=== PATIENT | male | born 1965 | race African-American/Black ===

== ENCOUNTER 2019-01-05 12:31 | Emergency (ER) | payer OTHER ==
[2019-01-05] MEDS ORDERED: NS 0.9% 1000 ML** 1,000 ML IV ONE (12:47)
[2019-01-05] MEDS ORDERED: Ondansetron INJ* 2 MG/ML VIAL IV ONE (12:48)
[2019-01-05 14:34] LABS: ABS Basophils 0 10^3/ul (0-0.2); ABS Eosinophils 0 10^3/ul (0-0.6); ABS Lymphocytes 0.4 10^3/ul (1.0-4.8); ABS Monocytes 0.3 10^3/ul (0-0.8); ABS Nucleated RBC 0 10^3/ul; Eosinophil % 0.3 %; Hematocrit 42 % (36-46); Hemoglobin 13.9 g/dL (14.0-18.0); Lymphocyte % 5.7 %; Mean Corpuscular HGB Conc 33 g/dL (31-36); Mean Corpuscular Hemoglobin 29 pg (27-31); Mean Corpuscular Volume 88 fL (80-94); Mean Platelet Volume 7.6 fL (7.4-10.4); Nucleated Red Blood Cells % 0.2; Platelet Count 252 10^3/uL (150-450); Red Blood Count 4.79 10^6 /uL (4.18-5.48); Red Cell Distribution Width 14 % (10.5-15); White Blood Count 7.8 10^3/uL (3.5-10.8)
[2019-01-05] MEDS ORDERED: Dicyclomine CAP* 10 MG PO ONE (14:49)
[2019-01-05 14:55] LABS: Albumin 4.5 g/dL (3.2-5.2); Albumin/Globulin Ratio 1.5 (1-3); BUN/Creatinine Ratio 15.3 (8-20); C Reactive Protein 8.84 mg/L (<8.01); Calcium 9.4 mg/dL (8.6-10.3); EGFR African American 84.5 (>60); EGFR Non-African American 69.8 (>60); Globulin 3.1 g/dL (2-4); Potassium 4.2 mmol/L (3.5-5.0); Total Bilirubin 0.5 mg/dL (0.2-1.0); Total Protein 7.6 g/dL (6.4-8.9)
--- NOTE | 2019-01-05 15:01 | ED ---
Abdominal Pain/Male - HPI Summary HPI Summary: Patient is a 53-year-old male with a history of GERD and hypertension presenting to the ED with abdominal cramping, nausea, vomiting since last evening after eating ground beef. He states he has had food poisoning the past and this feels similar. He does endorse sweats and chills, but denies any subjective fevers. He denies any known sick contacts. - History of Current Complaint Chief Complaint: EDAbdPain Stated Complaint: VOMITING FOOD POSION PER PT Time Seen by Provider: 01/05/19 14:27 Hx Obtained From: Patient Onset/Duration: Sudden Onset Timing: Constant Severity Initially: Moderate Severity Currently: Moderate Pain Intensity: 8 Pain Scale Used: 0-10 Numeric Radiates: No Character: Cramping Aggravating Factor(s): Nothing Alleviating Factor(s): Nothing Associated Signs And Symptoms: Positive: Vomiting, Diarrhea - Risk Factors Testicular Torsion: Negative - Allergies/Home Medications Allergies/Adverse Reactions: Allergies Allergy/AdvReac Type Severity Reaction Status Date / Time No Known Allergies Allergy Verified 12/08/18 10:53 Home Medications: Home Medications Ranitidine TAB (NF) [Zantac TAB (NF)] 150 mg PO BEDTIME 01/05/19 [History Confirmed 01/05/19] PMH/Surg Hx/FS Hx/Imm Hx Previously Healthy: Yes - Immunization History Hx Pertussis Vaccination: No Immunizations Up to Date: Yes Infectious Disease History: No Infectious Disease History: Denies: Traveled Outside the [place] in Last 30 Days - Social History Occupation: Employed Full-time Lives: With Family Alcohol Use: None Hx Substance Use: No Substance Use Type: Reports: None Smoking Status (MU): Never Smoked Tobacco Review of Systems Constitutional: Negative Negative: Fever, Chills, Fatigue, Skin Diaphoresis Negative: Palpitations, Chest Pain Negative: Shortness Of Breath, Cough Positive: Abdominal Pain, Vomiting, Diarrhea, Nausea Genitourinary: Negative Positive: no symptoms reported, see HPI Negative: Arthralgia, Myalgia Skin: Negative Neurological: Negative All Other Systems Reviewed And Are Negative: Yes Physical Exam Triage Information Reviewed: Yes Vital Signs On Initial Exam: Initial Vitals Temp Pulse Resp BP Pulse Ox 98.8 F 88 16 141/97 97 01/05/19 12:41 01/05/19 12:41 01/05/19 12:41 01/05/19 12:41 01/05/19 12:41 Vital Signs Reviewed: Yes Appearance: Positive: Well-Appearing, Well-Nourished Skin: Positive: Warm, Skin Color Reflects Adequate Perfusion Head/Face: Positive: Normal Head/Face Inspection Eyes: Positive: EOMI, Conjunctiva Clear Neck: Positive: Supple, No Lymphadenopathy Respiratory/Lung Sounds: Positive: Clear to Auscultation, Breath Sounds Present Cardiovascular: Positive: RRR, Pulses are Symmetrical in both Upper and Lower Extremities Musculoskeletal: Positive: Strength/ROM Intact Neurological: Positive: Speech Normal Psychiatric: Positive: Normal, Affect/Mood Appropriate Diagnostics - Vital Signs Vital Signs Temp Pulse Resp BP Pulse Ox 01/05/19 14:57 85 164/93 94 01/05/19 14:56 90 95 01/05/19 12:41 98.8 F 88 16 141/97 97 - Laboratory Lab Results: Lab Results 01/05/19 01/05/19 01/05/19 Range/Units 14:22 14:22 14:22 WBC 7.8 (3.5-10.8) 10^3/uL RBC 4.79 (4.18-5.48) 10^6 /uL Hgb 13.9 L (14.0-18.0) g/dL Hct 42 (36-46) % MCV 88 (80-94) fL MCH 29 (27-31) pg MCHC 33 (31-36) g/dL RDW 14 (10.5-15) % Plt Count 252 (150-450) 10^3/uL MPV 7.6 (7.4-10.4) fL Neut % (Auto) 89.9 % Lymph % (Auto) 5.7 % [place] % (Auto) 3.9 % Eos % (Auto) 0.3 % Baso % (Auto) 0.2 % Absolute Neuts (auto) 7.0 (1.5-7.7) 10^3/ul Absolute Lymphs (auto) 0.4 L (1.0-4.8) 10^3/ul Absolute Monos (auto) 0.3 (0-0.8) 10^3/ul Absolute Eos (auto) 0 (0-0.6) 10^3/ul Absolute Basos (auto) 0 (0-0.2) 10^3/ul Absolute Nucleated RBC 0 10^3/ul Nucleated RBC % 0.2 Sodium 137 (135-145) mmol/L Potassium 4.2 (3.5-5.0) mmol/L Chloride 105 (101-111) mmol/L Carbon Dioxide 28 (22-32) mmol/L Anion Gap 4 (2-11) mmol/L BUN 17 (6-24) mg/dL Creatinine 1.11 (0.67-1.17) mg/dL Est GFR ( Amer) 84.5 (>60) Est GFR (Non-Af Amer) 69.8 (>60) BUN/Creatinine Ratio 15.3 (8-20) Glucose 118 H (70-100) mg/dL Lactic Acid 0.8 (0.5-2.0) mmol/L Calcium 9.4 (8.6-10.3) mg/dL Total Bilirubin 0.50 (0.2-1.0) mg/dL AST 27 (13-39) U/L ALT 30 (7-52) U/L Alkaline Phosphatase 47 (34-104) U/L C-Reactive Protein 8.84 H (<8.01) mg/L Total Protein 7.6 (6.4-8.9) g/dL Albumin 4.5 (3.2-5.2) g/dL Globulin 3.1 (2-4) g/dL Albumin/Globulin Ratio 1.5 (1-3) Lipase 29 (11.0-82.0) U/L Result Diagrams: 01/05/19 14:22 01/05/19 14:22 Lab Statement: Any lab studies that have been ordered have been reviewed, and results considered in the medical decision making process. Abdominal Pain Male Course/Dx - Course Course Of Treatment: Patient is evaluated for possible food poisoning versus other etiology. He is endorsing abdominal cramping as well as nausea vomiting diarrhea. He states symptoms began this morning and went to the afternoon. He denies any nausea, vomiting, diarrhea currently, however states he still feels abdominal cramping throughout. Labs obtained and 1 L normal saline given. He is also given Zofran and dycyclomine. Influenza negative. Symptoms improved with medications and rx sent. Discussed we will not be adding abx at this time , however if diarrhea continues, he will f/u with pcp. - Diagnoses Provider Diagnoses: Gastroenteritis Discharge - Sign-Out/Discharge Documenting (check all that apply): Patient Departure Patient Received Moderate/Deep Sedation with Procedure: No - Discharge Plan Condition: Stable Disposition: HOME Prescriptions: Dicyclomine CAP* [Bentyl CAP*] 10 mg PO TID PRN #12 cap PRN Reason: Pain Ondansetron ODT TAB* [Zofran 4 MG Odt TAB*] 4 mg PO Q6H PRN #12 tab.odt MDD 4 PRN Reason: Nausea Patient Education Materials: Food Poisoning (ED) Referrals: Jennifer Simmons MD [Primary Care Provider] - Additional Instructions: Take the dicyclomine up to three times daily for abdominal spasms and pain Take zofran up to four times daily for nausea drink plenty of fluids, including Gatorade Please follow up with PCP as needed Chicken noodle soup, rice, toast, bananas, applesauce and other gentle foods at this time - Billing Disposition and Condition Condition: STABLE Disposition: Home
[2019-01-05 18:01] VITALS: BP 156/86
== END 2019-01-05 18:01 | disposition home or self-care (01) ==
LOC: ED 12:31
DX: K52.9 Noninfective gastroenteritis and colitis, unspecified (principal)
CPT/HCPCS: 36415; 80053; 83605; 83690; 85025; 86140; 96361; 96374; 99283; A9270-GY; J2405

== ENCOUNTER 2019-02-01 09:31 | Emergency (ER) | payer OTHER ==
--- NOTE | 2019-02-01 10:32 | ED ---
Headache - HPI Summary HPI Summary: Pt is a 53 y/o male who presents to the ED c/o headache. 2 weeks ago he began to have left lower dental pain and adjacent gingivitis. Since then pt has had a constant headache that has been worsening. Headache is described as a migraine and is currently rated an 8/10 in severity. Pt also reports sensitivities to hot /cold liquids and foods, but denies any fever. He has made a dental appointment and was instructed to come to the ED in case of an infection. Pt has been taking Tylenol for his pain which has helped somewhat. PMHx GERD. He denies any smoking. - History Of Current Complaint Chief Complaint: EDHeadache Stated Complaint: SENSITIVE TEETH/PAINFUL/MIGRAINE PER PT Time Seen by Provider: 02/01/19 10:18 Hx Obtained From: Patient Onset/Duration: Gradual Onset, Started weeks ago - 2, Worse Since Currently Pain Is: Severe - 8/10 Timing: Constant Character: Migraine Location of Headache: Diffuse Aggravating Factor: Other - hot/cold foods Associated Signs And Symptoms: Other (Noted In Comments) - dental pain - Allergies/Home Medications Allergies/Adverse Reactions: Allergies Allergy/AdvReac Type Severity Reaction Status Date / Time No Known Allergies Allergy Verified 02/01/19 09:38 PMH/Surg Hx/FS Hx/Imm Hx Endocrine/Hematology History: Denies: Hx Diabetes Cardiovascular History: Reports: Hx Hypercholesterolemia, Hx Hypertension GI History: Reports: Hx Gastroesophageal Reflux Disease, Other GI Disorders - polyps Infectious Disease History: No Infectious Disease History: Denies: Traveled Outside the [place] in Last 30 Days - Family History Known Family History: Positive: Other - migraine - sister - Social History Alcohol Use: None Hx Substance Use: No Substance Use Type: Reports: None Hx Tobacco Use: No Smoking Status (MU): Never Smoked Tobacco Review of Systems Negative: Fever Positive: Dental Pain - left lower Positive: Headache All Other Systems Reviewed And Are Negative: Yes Physical Exam - Summary Physical Exam Summary: Appearance: well appearing, no pain distress Skin: warm, dry, reflects adequate perfusion Head/face: normal Eyes: EOMI, PRAKASH ENT: mucous membranes moist, gingival edema and tenderness adjacent to first and second left lower molars, no pain at the parotid gland Neck: supple, non-tender Respiratory: CTA, breath sounds present Cardiovascular: RRR, pulses symmetrical Abdomen: non-tender, soft Bowel Sounds: present Musculoskeletal: normal, strength/ROM intact Neuro: normal, sensory motor intact, A&Ox3 Triage Information Reviewed: Yes Vital Signs On Initial Exam: Initial Vitals Temp Pulse Resp BP Pulse Ox 97.6 F 64 18 150/90 97 02/01/19 09:35 02/01/19 09:35 02/01/19 09:35 02/01/19 09:35 02/01/19 09:35 Vital Signs Reviewed: Yes Procedures - Procedure Summary Procedure Summary: cervical block and dental block for pain: The posterior neck was prepared at level of C5 with alcohol. He is injected 1.5 cm off midline bilaterally with a total of 1.5 cc of bupivacaine 0.5% with epinephrine on each side. He is then given a dental block via infraoral approach to the inferior alveolar nerve on the left side. These injections totally relieved his headache and jaw pain. He tolerated them well without complication. Diagnostics - Vital Signs Vital Signs Temp Pulse Resp BP Pulse Ox 02/01/19 09:35 97.6 F 64 18 150/90 97 - Laboratory Lab Statement: Any lab studies that have been ordered have been reviewed, and results considered in the medical decision making process. Re-Evaluation - Re-Evaluation First Eval Re-Evaluation Time: 10:40 Change: Improved Comment: Pt's pain is improving after the nerve block. Second Eval Re-Evaluation Time: 10:50 Change: Improved Comment: Pt now has complete pain relief. Headache Course/Dx - Course Course Of Treatment: Patient with jaw/tooth pain likely from dental infection which will be treated with antibiotics. He also had resulting headache. Both pains are relieved with a dental block and cervical block respectively. He will follow-up with dental in his primary care physician. - Diagnoses Differential Diagnosis/HQI/PQRI: Other - Dental abscess, TMJ, trigeminal neuralgia, migraine headache Provider Diagnoses: Dental abscess, Headache Discharge - Sign-Out/Discharge Documenting (check all that apply): Patient Departure - Discharge Patient Received Moderate/Deep Sedation with Procedure: No - Discharge Plan Condition: Improved Disposition: HOME Prescriptions: Naproxen [Naproxen 250 mg tab] 250 mg PO BID PRN #10 tablet PRN Reason: Pain Penicillin VK 500 MG TAB(NF) [Penicillin VK 500 mg Tab] 500 mg PO TID #30 tab Promethazine TAB* [Phenergan Tab*] 25 mg PO Q8H PRN #20 tab PRN Reason: headache/nausea Sucralfate TAB* [Carafate*] 1 gm PO QID #40 tab Patient Education Materials: Dental Abscess (ED), Acute Headache (ED) Referrals: Jennifer Simmons MD [Primary Care Provider] - Additional Instructions: Follow up with [facility] as scheduled. Follow up with your doctor for any persistent headaches. Return with fever, vomiting, increased pain, blurred vision, worse or other concerns. - Billing Disposition and Condition Condition: IMPROVED Disposition: Home - Attestation Statements Document Initiated by Danyelleibe: Yes Documenting Scribe: Magnolia Toth Provider For Whom Scribe is Documenting (Include Credential): Jake King MD Scribe Attestation: Magnolia Ellsworth scribed for Jake King MD on 02/01/19 at 1802. Scribe Documentation Reviewed: Yes Provider Attestation: The documentation as recorded by the Magnolia crawley accurately reflects the service I personally performed and the decisions made by Jake hooks MD Status of Scribe Document: Viewed
[2019-02-01] MEDS ORDERED: Bupivacaine 0.5% W/EPI SDV* 30 ML VIAL INJ ONE (10:33)
[2019-02-01] MEDS ORDERED: Bupivacaine 0.5% W/EPI SDV* 30 ML VIAL ONE (10:36)
[2019-02-01 11:27] VITALS: BP 147/91
== END 2019-02-01 11:24 | disposition home or self-care (01) ==
LOC: ED 09:31
DX: K04.7 Periapical abscess without sinus (principal); K08.89 Other specified disorders of teeth and supporting structures; R51 Headache; K21.9 Gastro-esophageal reflux disease without esophagitis; I10 Essential (primary) hypertension
CPT/HCPCS: 96374; 99282